=== PATIENT | male | born 1990 | race African-American/Black ===

== ENCOUNTER 2022-07-26 13:45 | Outpatient (RCR) | payer OTHER | END 2022-07-30 | disposition home or self-care (01) | LOC: PT.GENESIS | DX: C41.9 Malignant neoplasm of bone and articular cartilage, unspecified (principal) ==

== ENCOUNTER 2023-03-28 13:00 | Outpatient (RCR) | payer OTHER | END 2023-04-01 | disposition home or self-care (01) | LOC: PT.GENESIS | DX: C41.9 Malignant neoplasm of bone and articular cartilage, unspecified (principal) ==

== ENCOUNTER 2023-04-25 08:30 | Outpatient (RCR) | payer OTHER | END 2023-05-02 | disposition home or self-care (01) | LOC: PT.GENESIS | DX: C40.22 Malignant neoplasm of long bones of left lower limb (principal) ==